=== PATIENT | female | born 1980 ===

== ENCOUNTER 2019-08-11 09:30 | Inpatient (IN) | payer OTHER ==
[~2019-08-11] VITALS: Ht 157.5 cm; Wt 2.7 kg
[2019-08-11] MEDS ORDERED: PRENATABS FA T1 EACH PO (10:53)
== END 2019-08-27 11:19 | disposition home or self-care (01) | DRG 788 ==
LOC: O/R 08-24 05:30 → OB/GYN 08-24 05:30
PROVIDERS: ADMIT Obstetrics & Gynecology
PROC: 4A1HXCZ Monitoring of Products of Conception, Cardiac Rate, External Approach (ICD-10-PCS; 2019-08-24)
PROC: 10D00Z1 Extraction of Products of Conception, Low, Open Approach (ICD-10-PCS; principal; 2019-08-24 10:00)
DX: O65.5 Obstructed labor due to abnormality of maternal pelvic organs (principal); O34.211 Maternal care for low transverse scar from previous cesarean delivery; Z3A.39 39 weeks gestation of pregnancy; Z37.0 Single live birth

== ENCOUNTER 2021-05-05 07:30 | Inpatient (IN) | payer OTHER ==
[~2021-05-05] VITALS: Ht 157.5 cm; Wt 2.7 kg
[~2021-05-05 07:30] MED LIST: PRENATABS FA T1 EACH PO
[2021-05-08] MEDS ORDERED: PRENATAL CAPLE1 EAC1 PO (06:17)
[2021-05-08] MEDS ORDERED: IRON325 MG PO (06:17)
== END 2021-05-10 09:45 | disposition home or self-care (01) | DRG 788 ==
LOC: O/R 05-08 05:00 → OB/GYN 05-08 05:00
PROVIDERS: ADMIT Obstetrics & Gynecology; ATTEND Obstetrics & Gynecology
PROC: 4A1HXFZ Monitoring of Products of Conception, Cardiac Rhythm, External Approach (ICD-10-PCS; 2021-05-08)
PROC: 10D00Z1 Extraction of Products of Conception, Low, Open Approach (ICD-10-PCS; principal; 2021-05-08 07:00)
DX: O34.211 Maternal care for low transverse scar from previous cesarean delivery (principal); O99.02 Anemia complicating childbirth; D64.9 Anemia, unspecified; Z53.29 Procedure and treatment not carried out because of patient's decision for other reasons; Z37.0 Single live birth; Z3A.38 38 weeks gestation of pregnancy